=== PATIENT | male | born 1985 | race Caucasian/White ===

== ENCOUNTER 2016-10-22 10:49 | Emergency (ER) | payer SELFPAY | END 2016-10-22 13:52 | disposition home or self-care (01) | LOC: ER 10:49 | DX: L03.113 Cellulitis of right upper limb (principal); F17.210 Nicotine dependence, cigarettes, uncomplicated; W57.XXXA Bitten or stung by nonvenomous insect and other nonvenomous arthropods, initial encounter | CPT/HCPCS: 36415; 96365; 96375; J1885; J3370 ==

== ENCOUNTER 2016-12-12 13:00 | Inpatient (IN) | payer OTHER ==
[~2016-12-12] VITALS: Ht 175.3 cm; Wt 56.5 kg
[2016-12-16] MEDS ORDERED: KEFLEX500 MG PO (11:49)
[2016-12-16] MEDS ORDERED: CULTURELLE1 EACH PO (11:49)
== END 2016-12-16 12:08 | disposition home or self-care (01) | DRG 572 ==
LOC: ER 13:00 → MED 16:27
PROVIDERS: ADMIT Internal Medicine
PROC: 0HBCXZZ Excision of Left Upper Arm Skin, External Approach (ICD-10-PCS; principal; 2016-12-13)
PROC: 0HBBXZZ Excision of Right Upper Arm Skin, External Approach (ICD-10-PCS; 2016-12-13)
DX: L02.412 Cutaneous abscess of left axilla (principal); L02.411 Cutaneous abscess of right axilla; B95.61 Methicillin susceptible Staphylococcus aureus infection as the cause of diseases classified elsewhere; F11.10 Opioid abuse, uncomplicated; L73.2 Hidradenitis suppurativa; L03.112 Cellulitis of left axilla; L03.111 Cellulitis of right axilla; F17.210 Nicotine dependence, cigarettes, uncomplicated
CPT/HCPCS: 36415; 80307; 96365; 96375; J1885; J2704